=== PATIENT | female | born 1980 | race Caucasian/White ===

== ENCOUNTER 2019-09-02 10:10 | Emergency (ER) | payer SELFPAY ==
[2019-09-02 10:14] VITALS: BP 115/75; PULSE 94; RESP 14; TEMP 36.6; O2SAT 99
--- NOTE | 2019-09-02 11:10 | NUR.NOTE ---
11:08 Stage Director in room to start IV and draw bloodwork. Patient became irate when informed that the MRI may not be done until late this afternoon. She got up and immediately stated i am not waiting, I should have gone to [facility]. Stage Director offered to have provider come in and speak with her. Informed her that we can still get labs done. She grabbed her things and left. Josette TAYLOR made aware.
--- NOTE | 2019-09-02 11:19 | ED.GENADUL_ITS ---
Discharge Plan Discharge Details Chief Complaint: Nk/Back Pain Primary Care Provider: None,None ED Provider: Zoya Abraham Home Meds and New Rx's Prescriptions: No Action No Known Home Meds RF: 0 Discharge Data Discharge Date/Time-TO BE ENTERED AT DEPARTURE: 09/02/19 11:08 Medical Decision Making Per nursing staff patient was advised of the timing of her imaging studies and labs and she got up and walked out of the emergency room. Nursing staff reported they recommended waiting to speak with myself regarding timing and images but patient was unwilling to wait for any labs or imaging and eloped the ER. HPI General Date/Time Provider Initiated Documentation: 09/02/19 10:59 . HPI Narrative: 39-year-old patient presents for complaints of lower back pain. Patient reports when having intercourse she had severe lower back pain. Patient has a cystic structure on the low back which she is noticed for several weeks. Patient reports when having intercourse pain worsened as she was on her back on top of the cyst. Patient denies radiating pain into the legs, numbness, tingling or weakness associated. Patient denies fever or chills. 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 Denies ill feeling at this time associated. Patient denies history of IV drug use ever. Patient denies urinary urgency, frequency or dysuria. Denies bowel changes or abdominal pain associated. Patient does report neck pain with radiation to her upper extremiti es which is chronic lasting greater than a year and also unchanged recently. No neck pain at this time. Related Data Home Medications Medication Instructions Recorded Confirmed Unknown [No Known Home Meds] 09/02/19 09/02/19 Allergies Allergy/AdvReac Type Severity Reaction Status Date / Time No Known Allergies Allergy Unverified 09/02/19 10:20 General Stated Complaint: Nk/Back Pain ZEYAD: 3 Review of Systems Review of Systems ROS Unobtainable: All systems reviewed & are unremarkable except as noted in HPI and below Constitutional Constitutional: Denies chills, Denies fever(s) and Denies malaise Musculoskeletal Musculoskeletal: Denies abnormal gait, Reports back pain, Denies muscle weakness and Denies numbness Neurologic Neurologic: Denies abnormal gait and Denies numbness PFS Social History Smoking/Tobacco Use Status: Current every day Alcohol Intake: former Drug use: Rarely Substance use type: marijuana Do you feel safe at home: Yes Do you feel safe in your relationship?: Yes Exam Narrative Exam Narrative: CONST: Healthy appearing patient, in no acute distress. Well hydrated. Alert and alert. HENMT: Head nomocephalic, normal to inspection. Atraumatic. Hearing grossly normal. EYES: General normal appearance. Alignment normal. Eyelids normal. Conjunctiva normal. NECK: Normal visual inspection. FROM. Trachea midline. No Midline tenderness. CHEST: Normal insepection of the chest. RESP: Normal respiratory effort. Speaking full sentences. No cough. No audible wheezing. No retractions. CARDIO: No JVD. Abdomen; no abdominal pain with palpation. Benign abdominal exam, soft abdomen with bowel sounds present in all 4 quadrants. No rebound, guarding or peritoneal signs. No obvious distention. Back; no CVA tenderness bilaterally. Patient with a cystic structure approximately 2.5 cm diameter overlying the midline of the L-spine with associated pain with palpation. No erythema or warmth associated with str uctural swelling. MUSCULOSKELETAL: Normal Gait. FROM of all extremities. SKIN: Normal. Dry. No rashes. NEURO: Alert and awake. Speech clear. PSYCH: Normal affect. Cooperative. Course Vital Signs Vital signs: Vital Signs Temperature 36.6 C 09/02/19 10:14 Pulse 94 H 09/02/19 10:14 Respiratory Rate 14 09/02/19 10:14 Blood Pressure 115/75 09/02/19 10:14 Pulse Oximetry 99 09/02/19 10:14 Temperature 36.6 C 09/02/19 10:14 Temperature Source Skin 09/02/19 10:14 Pulse 94 H 09/02/19 10:14 Respiratory Rate 14 09/02/19 10:14 Respiratory Effort 09/02/19 10:20 Blood Pressure 115/75 09/02/19 10:14 Blood Pressure Position Sitting 09/02/19 10:14 Pulse Oximetry 99 09/02/19 10:14 Oxygen Delivery Method Room Air 09/02/19 10:14 Oxygen Flow Rate 0 09/02/19 10:14 Pain Level 8 09/02/19 10:38 Comment 09/02/19 10:14
== END 2019-09-02 11:08 ==
LOC: ER 10:52
PROVIDERS: Emergency Provider Physician Assistant
DX: Z53.21 Procedure and treatment not carried out due to patient leaving prior to being seen by health care provider (principal)
CPT/HCPCS: 80053; 85652; 99282; 84703; 85025; 86140

== ENCOUNTER 2020-07-13 09:57 | Emergency (ER) | payer MEDICAID, SELFPAY ==
[2020-07-13 10:11] VITALS: BP 114/91; PULSE 88; RESP 14; TEMP 37.2; O2SAT 100
--- NOTE | 2020-07-13 10:30 | DI.RAD_ITS ---
EXAM: XR THORACIC SPINE COMPLETE CLINICAL HISTORY: chronic Pain. TECHNIQUE: 2D digital imaging was performed. COMPARISON: No exams were available for comparison FINDINGS: BONES: There is no fracture or destructive lesion. The vertebral bodies and posterior elements are un remarkable. DISKS:Alignment is within normal limits. Interverebral disc spaces are maintained. There are small en dplate osteophytes in the midthoracic spine. SOFT TISSUE: Visualized lungs are clear. 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 DATA REPOSITORY: RADIATION DOSE DELIVERED:
--- NOTE | 2020-07-13 10:32 | W.ED.GENAD ---
Discharge Plan Disposition Patient Disposition: HOME Condition: Stable Discharge Details Chief Complaint: Nk/Back Pain Clinical Impression: Back pain, UTI (urinary tract infection) Primary Care Provider: None,None ED Provider: Olya Pearce Home Meds and New Rx's Prescriptions: New cephalexin 500 mg tablet 500 mg PO BID 7 Days Qty: 14 RF: 0 Discharge Instructions Instructions: Urinary Tract Infection in Women (ED), Back Pain (ED) Additional Instructions: Follow up with primary care provider in 3-5 days. Return to ED sooner if any worsening or concerns. Increase oral fluids. Please take Tylenol or Ibuprofen with food every 4-6 hours as needed for pain and swelling. You may use lidocaine topical patches which he can get [id number]. Take antibiotics as directed and take medications as prescribed. Stand Alone Forms: Work Release Discharge Data Discharge Date/Time-TO BE ENTERED AT DEPARTURE: 07/13/20 12:20 Medical Decision Making 39-year-old female presents to the ER with T-spine and L-spine tenderness which has been chronic in nature. Patient states that she has had back pain for years and has recently gotten worse over the last couple months. Denies any recent trauma or injuries no falls. She reports that she started a job at [employer] and has been doing some increased bending and heavy lifting. She endorses numbness and tingling noted to her right arm, and to the top of her right foot when sitting. Denies any neck or upper back pain. She does report increased frequency of urination and dysuria. Denies fever or any other complaints. Denies any saddle anesthesia. EXAM: XR THORACIC SPINE COMPLETE CLINICAL HISTORY: chronic Pain. TECHNIQUE: 2D digital imaging was performed. COMPARISON: No exams were available for comparison FINDINGS: BONES: There is no fracture or destructive lesion. The vertebral bodies and posterior elements are unremarkable. DISKS:Alignment is within normal limits. Interverebral disc spaces are maintained. There are small endplate osteophytes in the midthoracic spine. SOFT TISSUE: Visualized lungs are clear. 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 EXAM: XR LUMBAR SPINE COMPLETE CLINICAL HISTORY: chroni pain, radiculopathy. TECHNIQUE: 2D digital imaging was performed. COMPARISON: No exams were available for comparison FINDINGS: Vertebral bodies are well maintained in height. There are minimal degenerative disc changes at L4-5. There is no significant scoliosis, spondylolysis or spondylolisthesis. There are mild degenerative changes of the SI joints. IMPRESSION: Mild degenerative changes. Patient received Toradol IM 30 mg and 10 mg Flexeril p.o. 1155: Discussed x-ray results with patient and urine results, verbalized understanding. Will treat patient for urinary tract infection and discussed lidocaine patches, verbalized understanding also discussed alternating ice and heat active back exercises and a work note. HPI General Mode of arrival: ambulatory. Date/Time Provider Initiated Documentation: 07/13/20 10:02. Limitations to Documentation: no limitations. Information obtained by: patient. HPI Narrative: 39-year-old female presents to the ER with T-spine and L-spine tenderness which has been chronic in nature. Patient states that she has had back pain for years and has recently gotten worse over the last couple months. Denies any recent trauma or injuries no falls. She reports that she started a job at [employer] and has been doing some increased bending and heavy lifting. She endorses numbness and tingling noted to her right arm, and to the top of her right foot when sitting. Denies any neck or upper back pain. She does report increased frequency of urination and dysuria. Denies fever or any other complaints. Denies any saddle anesthesia. Related Data Home Medications Medication Instructions Recorded Confirmed cephalexin 500 mg PO BID 7 Days #14 tab 07/13/20 Previous Rx's Medication Instructions Recorded cephalexin 500 mg PO BID 7 Days #14 tab 07/13/20 Allergies Allergy/AdvReac Type Severity Reaction Status Date / Time No Known Allergies Allergy Unverified 07/13/20 10:13 General Stated Complaint: Nk/Back Pain ZEYAD: 4 Review of Systems Narrative: Constitutional: Negative for weight loss, alert and oriented, well groomed, normal body habitus, appears comfortable. HEENT: Denies trauma, headaches, blurry vision, nasal discharge, sore throat, trouble swallowing. Chest: Denies chest pain, palpitations, irregular rhythm, hypertension. Respiratory: Denies Shortness of breath, cough, hemoptysis. GI: Denies abdominal pain, nausea, vomiting, diarrhea, constipation. : Denies , hematuria, flank pain, rectal bleeding. Positive increased urinary frequency and dysuria. Musculoskeletal: Reports midline T and L-spine tenderness. Pain radiates into her bilateral lower lumbar area and right leg. Neuro: Denies dizziness, blurry vision, weakness, syncope, headache or facial numbness. Reports numbness to her right arm and top of right foot when sitting. Hematologic: Denies easy bruising, intolerance to heat or cold, hair loss. [facility] Social History Smoking/Tobacco Use Status: Current every day Alcohol Intake: former Drug use: Rarely Substance use type: marijuana Do you feel safe at home: Yes Do you feel safe in your relationship?: Yes Exam Narrative Exam Narrative: Constitutional: Alert and oriented x3. Appears stated age. Normal body habitus. Head: Normocephalic, no trauma. Eyes: Pupils PERRLA, Red reflex noted, EOM's intact. Eyelids symmetrical without lesions, discharge, or swelling. ENT: Bilateral TM's WNL, External ear normal to inspection, no mastoid TTP, swelling, or erythema, Nasal turbinates WNL, no nasal discharge. Normal dentition, Posterior pharynx WNL, no exudate. Chest: RRR, Normal S1, S2, distal pulses intact. Resp: Lungs clear to auscultation bilaterally, no wheezes, rales, or rhonchi. Musculoskeletal: Midline T and L-spine tenderness, no step-off or crepitus palpated. Does have bilateral paraspinous lumbar muscle spasm, Skin: No suspicious rashes or lesions. Capillary refill less than 2 sec. Neurologic: Cranial nerves II-XII intact. Alert and oriented x 3. DTR's intact. Dorsiflexion and plantarflexion 5 out of 5 negative straight leg test bilaterally. Hematologic/Lymphatic: No ecchymosis, no lymphadenopathy. Course Vital Signs Vital signs: Vital Signs Temperature 37.2 C 07/13/20 10:11 Pulse 88 07/13/20 10:11 Respiratory Rate 14 07/13/20 10:11 Blood Pressure 114/91 H 07/13/20 10:11 Pulse Oximetry 100 07/13/20 10:11 Temperature 37.2 C 07/13/20 10:11 Temperature Source Tympanic 07/13/20 10:11 Pulse 88 07/13/20 10:11 Respiratory Rate 14 07/13/20 10:11 Respiratory Effort Non-Labored 07/13/20 10:13 Blood Pressure 114/91 H 07/13/20 10:11 Blood Pressure Position Sitting 07/13/20 10:11 Pulse Oximetry 100 07/13/20 10:11 Oxygen Delivery Method Room Air 07/13/20 10:11 Oxygen Flow Rate 0 07/13/20 10:11 Pain Level 8 07/13/20 10:14
[2020-07-13] MEDS: Cyclobenzaprine 10 MG TAB PO (11:22)
[2020-07-13] MEDS: Ketorolac 30 MG/ML VIAL IM (11:23)
--- NOTE | 2020-07-13 11:26 | DI.RAD_ITS ---
EXAM: XR LUMBAR SPINE COMPLETE CLINICAL HISTORY: chroni pain, radiculopathy. TECHNIQUE: 2D digital imaging was performed. COMPARISON: No exams were available for comparison FINDINGS: Vertebral bodies are well maintained in height. There are minimal degenerative disc changes at L4-5. There is no significant scoliosis, spondylolysis or spondylolisthesis. There are mild degenerative changes of the SI joints. IMPRESSION: Mild degenerative changes. DATA REPOSITORY: RADIATION DOSE DELIVERED:
[2020-07-13 11:29] LABS: Bilirubin Negative (Negative); Blood Small (Negative); Clarity Cloudy (Clear); Glucose Negative (Negative); Ketones Negative (Negative); Leukocyte Esterase Moderate (Negative); Nitrite Negative (Negative); Urobilinogen 0.2 EU/dL (Up TO 0.2); pH 5.5 (5-8)
[2020-07-13 11:38] LABS: WBC >50 HPF (0-5)
[2020-07-13 11:39] LABS: Bacteria Rare HPF (Negative); C & S Indicated? Yes; Casts Negative LPF (Negative); Crystals Negative HPF (Negative); Epithelial Cells Few HPF (Negative); Mucus Negative (Negative); RBC 0-2 HPF (0-2)
--- NOTE | 2020-07-13 12:06 | NUR.NOTE ---
Nursing Note: Referral for establish care PCP and follow up given to Behavioral Health Professional. Rosario Marlow
[2020-07-13] MEDS: Cephalexin 500 MG CAP PO (12:08)
[2020-07-13] MEDS: Lidocaine 5% Patch 1 PATCH TP (12:12)
[2020-07-13] MEDS: Cephalexin 500 MG CAP, 4 CAPS/BTL PO (12:14)
--- NOTE | 2020-07-13 15:18 | PDOC.ERCMPRO ---
- If Service Date Differs Date of service: 07/13/20 Time of Service: 15:18 Care Management Progress Note At the request of ED provider, CM coordinates referral to [facility] to assist patient in scheduling a follow up appointment and in establishing care with PCP.
== END 2020-07-13 12:20 | disposition home or self-care (01) ==
LOC: ER 12:07
PROVIDERS: Emergency Provider Registered Nurse Emergency
DX: N39.0 Urinary tract infection, site not specified (principal); M54.5 Low back pain; M54.6 Pain in thoracic spine; G89.29 Other chronic pain
CPT/HCPCS: 87077; 96372; 99284; 72072; 72110; 81003; 81015; 87086; 87186; J1885

== ENCOUNTER 2021-08-23 09:23 | Outpatient (REF) | payer MEDICAID, SELFPAY ==
[2021-08-23 15:02] LABS: HCT 38.9 % (36.0-46.0); HGB 12.7 g/dL (11.2-15.7); MCHC 32.6 % (32.0-36.0); MCV 94.9 fL (80-95); MPV 10.1 fL (8.0-11.0); Platelet Count 337 10^3/uL (130-400); RDW 12.8 % (11.7-14.6); RDW-SD 44.6 fL; WBC 4.38 10^3/uL (4.4-10.8)
[2021-08-23 15:29] LABS: ALT 19 U/L (14-59); AST 21 U/L (15-37); Albumin 3.8 g/dL (3.4-5.0); Alkaline Phosphatase 56 U/L (46-116); Anion Gap 8.6 mmol/L (3-11); BUN 6 mg/dL (7-18); Bilirubin, Total 0.3 mg/dL (0.2-1.0); CO2 30.4 mmol/L (21.0-32.0); CREATININE 0.9 mg/dL (0.55-1.02); Calcium 9.1 mg/dL (8.5-10.1); Calculated LDL 118 mg/dL (<100); Chloride 101 mmol/L (98-107); Cholesterol 197 mg/dL (<200); Glucose 103 mg/dL (74-106); HDL Cholesterol 68 mg/dL (40-60); Potassium 3.9 mmol/L (3.5-5.1); Sodium 140 mmol/L (136-145); Total Protein 7.2 g/dL (6.4-8.2); Triglyceride 56 mg/dL (<150)
[2021-08-24 12:37] LABS: Hepatitis C Ab w Rflx HCV PCR Negative (Negative)
== END 2021-08-23 09:24 | disposition home or self-care (01) ==
LOC: NCHCN 09:23
PROVIDERS: Visit Provider Physician Assistant
DX: Z11.59 Encounter for screening for other viral diseases (principal); Z13.220 Encounter for screening for lipoid disorders; F10.20 Alcohol dependence, uncomplicated
CPT/HCPCS: 80053; 80061; 85027; 86803

== ENCOUNTER 2021-08-25 14:01 | Outpatient (REF) | payer MEDICAID, SELFPAY ==
--- NOTE | 2021-08-25 11:30 | PAPFT_PTH ---
PATIENT: Marta Chapman LOC: [facility]#:[id number] AGE/SX: 40/F ROOM: RE08/25/[address]: Papito Ely : 1980 BED: DIS: 08/25/2021 SPEC #: [id number] RECD: 08/26/21 13:00 STATUS: REY REQ #: [id number] ROSA: 08/25/21 11:[address]: Papito Ely DEPT: [facility] Cytology RECD BY: Laura Brown ENTERED: 08/26/21 13:00 SP TYPE: PAPFT OT DR: Unknown,Unknown Tissues: 1 - CX/ENDOCX FOR PAP SMEARS Procedures: PAP THIN PREP/[facility] Screening HPV DNA PROBE Comments: [id number]
[2021-08-27 14:46] LABS: Chlamydia Result Negative (Negative); GC Result Negative (Negative)
== END 2021-08-25 14:02 | disposition home or self-care (01) ==
LOC: NCHCN 14:01
PROVIDERS: Visit Provider Physician Assistant
DX: Z12.4 Encounter for screening for malignant neoplasm of cervix (principal); Z11.3 Encounter for screening for infections with a predominantly sexual mode of transmission; Z11.51 Encounter for screening for human papillomavirus (HPV)
CPT/HCPCS: 87491; 87591; 88142; 87624